=== PATIENT | female | born 1990 | race Caucasian/White ===

== ENCOUNTER 2021-07-03 04:19 | Emergency (ER) | payer MEDICAID ==
[~2021-07-03] VITALS: Ht 167.6 cm; Wt 72.6 kg
[2021-07-03 04:49] VITALS: BP 130/83
== END 2021-07-03 05:24 | disposition left against medical advice (07) ==
LOC: ER 04:23
DX: Z53.21 Procedure and treatment not carried out due to patient leaving prior to being seen by health care provider (principal)